=== PATIENT | female | born 1975 | race Caucasian/White ===

== ENCOUNTER 2021-08-05 14:23 | Emergency (ER) | payer OTHER ==
[~2021-08-05] VITALS: Ht 154.9 cm; Wt 82.7 kg
--- NOTE | 2021-08-05 14:47 | PHYS DOC ---
Past Medical History Past Medical History: No Pertinent History Past Surgical History: Hysterectomy, Tonsillectomy Additional Past Surgical Histo: DENTAL SURGERY Smoking Status: Never Smoker Alcohol Use: Rarely Drug Use: None General Adult EDM: Chief Complaint: MECHANICAL FALL HPI: HPI: Patient is a 46-year-old female who presents with CC head trauma. Patient reports multiple crates weighing greater than 100 pounds fell from a shelf above her head striking the left side of her head and causing her to collapse to the floor. Patient reports event occurred 45 minutes ago while at work. Patient also complains of right dorsal hand pain associated with the fall. Patient denies loss of consciousness. Patient has a PSH total hysterectomy in 2011 and trigger finger bilateral 2014. Patient denies fever, nausea, vomiting, hematochezia, hematuria, dizziness, bilateral weakness. Patient denies smoking history. Patient denies alcohol consumption. Patient denies illicit drug use. Review of Systems: Review of Systems: Constitutional: Denies fever or chills Eyes: Denies redness or eye pain HENT: Denies nasal congestion or sore throat. Reports headache. Reports 8cm superficial laceration vertex. Respiratory: Denies cough or shortness of breath Cardiovascular: Denies chest pain or palpitations GI: Denies abdominal pain, nausea, or vomiting : Denies dysuria or hematuria Musculoskeletal: Denies back pain or joint pain. Reports mild tenderness dorsum R hand. Integument: Denies rash or skin lesions Neurologic: Denies headache, focal weakness or sensory changes Complete systems were reviewed and found to be within normal limits, except as documented in this note. Heart Score: C/O Chest Pain: N/A Allergies: Allergies: Allergies Coded Allergies Type Severity Reaction Last Updated Verified Penicillins Allergy Severe SWELLING 02/04/14 No acetaminophen Allergy Severe SWELLING 02/04/14 No codeine Allergy Severe SWELLING 02/04/14 No Physical Exam: PE: Constitutional: Well developed, well nourished, no acute distress, non-toxic appearance HENT: Normocephalic, 8 cm superificial laceration vertex Eyes: PERRL, EOMI, conjunctiva normal, no discharge Neck: Normal range of motion, no tenderness, supple Lungs & Thorax: No respiratory distress, equal chest rise and fall Abdomen: Soft, no tenderness Skin: Warm, dry, no erythema, no rash Back: No tenderness, no CVA tenderness Extremities: Mild tenderness dorsum R hand, ROM intact, no edema Neurologic: Alert and oriented X 3, normal motor function, normal sensory function, no focal deficits noted Psychologic: Affect normal, judgment normal Course & Med Decision Making: Course & Med Decision Making Patient is a 46-year-old female who presents with CC head trauma. Patient reports multiple crates weighing greater than 100 pounds fell from a shelf above her head striking the left side of her head and causing her to collapse to the floor. Patient reports event occurred 45 minutes ago while at work. Patient also complains of right dorsal hand pain associated with the fall. Pertinent Labs and Imaging studies reviewed. (See chart for details) Patient stable for discharge with outpatient follow-up with PCP. Discussed findings and plan with patient, who acknowledges understanding and agreement. Skip Disclaimer: Skip Disclaimer: This electronic medical record was generated, in whole or in part, using a voice recognition dictation system. Departure Departure Impression: Primary Impression: Contusion of head Qualified Codes: S00.03XA - Contusion of scalp, initial encounter Additional Impression: Cervical strain, acute Qualified Codes: S16.1XXA - Strain of muscle, fascia and tendon at neck level, initial encounter Disposition: HOME / SELF CARE / HOMELESS Condition: STABLE Referrals: ANALY ZAVALA MD (PCP) Patient Instructions: Cervical Strain and Sprain with Rehab-SportsMed, Head Injury, Adult, [id number] Additional Instructions: Ice area of discomfort 20 minutes on and leave off next 20 minutes. Repeat several times daily for next 2 days. Take [id number] ibuprofen as needed for pain or discomfort. Scripts Orphenadrine Citrate (ORPHENADRINE CITRATE) 100 Mg Tablet.er 100 MG PO BID PRN for MUSCLE PAIN, #14 TAB Prov: GARRETT OTERO DO 08/05/21 GARRTET OTERO DO August 05, 2021 14:47
[2021-08-05] MEDS ORDERED: NEOMY/BACITR/POLYMYXIN OINT PACKET. TP ONE (15:00)
[2021-08-05 15:29] VITALS: BP 137/81
--- NOTE | 2021-08-05 15:39 | RAD ---
PQRS Compliance Statement: One or more of the following individualized dose reduction techniques were utilized for this examinat ion: 1. Automated exposure control 2. Adjustment of the mA and/or kV according to patient size 3. Use of iterative reconstruction technique CT head and cervical spine without contrast 08/05/2021 3:11 PM INDICATION: Head contusion, head and neck pain COMPARISON: None available TECHNIQUE: Multiple axial CT images of the head were obtained from skull base through the vertex with out intravenous contrast. Multiple axial CT images of the cervical spine were obtained without intrav enous contrast. Coronal and sagittal reformats are provided. FINDINGS: Head: Ventricles, sulci and basal cisterns are within normal limits. There is no hydrocephalus. Varela-white matter differentiation is normal. There is no acute intracranial hemorrhage. There is no mass, mass e ffect or midline shift. Posterior fossa is normal in appearance. Visualized portions of the orbits are normal. Paranasal sinuses are well aerated. Mastoid air cells a re well aerated. Scalp and calvaria are normal. Cervical spine: Alignment of the cervical spine is normal. Skull base is intact. Craniocervical junction is normal in appearance. Atlantoaxial articulation is normal. Vertebral body heights are maintained without evidence for acute fracture. At C4-C5, there is posterior disc osteophyte complex with mild right facet arthropathy. No significan t uncovertebral joint disease. No neuroforaminal or spinal canal stenosis. Mild thoracic spondylosis at T1-T2. There is no prevertebral soft tissue swelling. Thyroid gland is normal in appearance. Visualized port ions of the lung apices are normal without evidence for suspicious pulmonary nodule or infiltrate. IMPRESSION: 1. No acute intracranial hemorrhage. 2. No acute fracture or malalignment of the cervical spine. Electronically signed by: Edna Best MD (08/05/2021 3:37 PM) [id number]
[2021-08-05] MEDS ORDERED: DIPHTH,PERTUSS(ACELL),TET TOX 0.5 ML DISP.SYRIN. VAX IM ONE (15:45)
[2021-08-05] MEDS ORDERED: ORPH100T PO (15:50)
== END 2021-08-05 15:55 | disposition home or self-care (01) ==
LOC: ER 14:23
DX: S16.1XXA Strain of muscle, fascia and tendon at neck level, initial encounter (principal); S00.03XA Contusion of scalp, initial encounter; R51.9 Headache, unspecified; Z88.0 Allergy status to penicillin; Z88.6 Allergy status to analgesic agent; Z88.5 Allergy status to narcotic agent; W17.89XA Other fall from one level to another, initial encounter; Y93.89 Activity, other specified; Y92.89 Other specified places as the place of occurrence of the external cause; Y99.8 Other external cause status
CPT/HCPCS: 70450; 72125; 90471; 90715; 99284-25